=== PATIENT | male | born 1970 | race Caucasian/White ===

== ENCOUNTER 2018-09-30 21:58 | Emergency (ER) | payer SELFPAY | END 2018-10-01 10:08 | disposition home or self-care (01) | LOC: E/R 21:58 | DX: F10.920 Alcohol use, unspecified with intoxication, uncomplicated (principal); R40.4 Transient alteration of awareness; R40.2242 Coma scale, best verbal response, confused conversation, at arrival to emergency department; R40.2132 Coma scale, eyes open, to sound, at arrival to emergency department; R40.2352 Coma scale, best motor response, localizes pain, at arrival to emergency department; Z59.0 Homelessness | CPT/HCPCS: 80307; 99283 ==